=== PATIENT | female | born 1990 | race Caucasian/White ===

== ENCOUNTER 2017-12-17 19:42 | Outpatient (CLI) | END 2017-12-17 23:42 | disposition home or self-care (01) ==

== ENCOUNTER 2017-12-19 13:08 | Outpatient (CLI) | END 2017-12-19 17:12 | disposition home or self-care (01) ==

== ENCOUNTER 2017-12-21 09:39 | Outpatient (CLI) | END 2017-12-21 11:50 | disposition home or self-care (01) ==

== ENCOUNTER 2018-01-08 17:51 | Inpatient (IN) | END 2018-01-11 15:45 | disposition home or self-care (01) | DRG 766 ==